=== PATIENT | male | born 1945 | race Caucasian/White ===

== ENCOUNTER 2016-11-29 10:23 | Day surgery (SDC) | payer MEDICARE ==
--- NOTE | ~2016-11-29 | OP ---
Record Of Operation [facility] [address] [place]. [address] NAME: BÁRBARA VALDIVIA : 45 STATUS : [facility]#: [id number] AGE: 71 ADM/REG DATE : 11/29/16 MR#: [id number] REPORT SERV DATE: 11/29/16 DICTATED BY: CRISTOFER IGLESIAS DATE: 11/29/16 REPORT STATUS : Draft TRANSCRIBED BY: MODL DATE: 11/29/16 DATE OF PROCEDURE: 11/29/2016 ATTENDING PHYSICIAN: Cristofer Iglesias M.D. TITLE OF OPERATION: Cystourethroscopy, right ureteroscopy with laser lithotripsy, and basket stone extraction of stones, right retrograde pyelogram, 6 x 24 right ureteral stent placement with tether. PREOPERATIVE DIAGNOSES: Bilateral ureteral stones and right renal stone. POSTOPERATIVE DIAGNOSES: Bilateral ureteral stones and right renal stone. INDICATIONS: Mr. Valdivia is a 71-year-old male who presented to me with right flank pain. KUB demonstrated high-volume stones in his right kidney as well as approximately 2 cm of stone in his right UVJ and about 1.5 cm of the stone in his left mid ureter. Surprisingly, his creatinine and kidney function is completely normal. He is here for treatment of the right- sided stones. We will do a delayed shockwave lithotripsy on the left side per his request. ANESTHESIA: General. COMPLICATIONS: None. IMPLANTS: 6 x 24 right ureteral stent with tether. SPECIMEN: Stones for analysis. NARRATIVE: The patient was brought to the operating room, identified by his wristband. General anesthesia was induced. Ancef was given for preoperative antibiotics. He was placed in dorsal lithotomy position, prepped and draped in sterile fashion. A rigid ureteroscope was placed into his urethra into his bladder. The right ureteral orifice was identified, it was gaping. The rigid ureteroscope was driven into the distal ureter and then a large volume of stone was immediately encountered. Using a 365 micron laser fiber, the stones were fragmented into numerous small pieces and removed with a basket grasper. The ureter was not traumatized. All stones were removed from the ureter. A retrograde pyelogram was shot, which showed a tortuous ureter with proximal dilation. Given these findings, I elected to leave the stent and Sensor wire was placed into the renal pelvis under fluoroscopic guidance. A 6 x 24 ureteral stent was placed in standard fashion. The proximal coil was in the renal pelvis and the distal coil was in the bladder. A tether was left. The bladder was drained. The patient was awoken from anesthesia and transferred to the recovery room in stable condition. He will remove his stent on Sunday or on Sunday in the clinic if he prefers. We will schedule him electively for shockwave lithotripsy on the left side. Record Of Operation [address] [place]. [address] NAME: BÁRBARA VALDIVIA : 45 STATUS : [facility] PAT#: [id number] AGE: 71 ADM/REG DATE : 11/29/16 MR#: [id number] REPORT SERV DATE: 11/29/16 DICTATED BY: CRISTOFER IGLESIAS DATE: 11/29/16 REPORT STATUS : Draft TRANSCRIBED BY: FALLON DATE: 11/29/16 BASIA/FALLON Cristofer Iglesias MD / [id number] CC: MD Lenin Olivera M.D.
[~2016-11-29 10:23] MED LIST: ADVIL PO; NORV5 PO; PRAVACHOL40 MG PO; T PO; VASERETIC10 PO; Z300 PO
[2016-11-29 10:53] LABS: HEMATOCRIT 45.3 % (40.0-51.0); HEMOGLOBIN 16.1 g/dL (13.6-17.8)
[2016-11-29 11:05] LABS: CALCIUM, SERUM 9.4 MG/DL (8.5-10.4); CHLORIDE, SERUM 105 MMOL/L (96-112); CO2 (CARBON DIOXIDE) 24 MMOL/L (24-34); CREATININE 1.04 MG/DL (0.70-1.30); GFR AFRICAN AMERICAN 83 ML/MIN (>=60); GFR NON AFRICAN AMERICAN 72 ML/MIN (>=60); POTASSIUM, SERUM 4.1 MMOL/L (3.5-5.3); SODIUM, SERUM 140 MMOL/L (135-148)
[2016-11-29 11:06] LABS: BUN (BLOOD UREA NITROGEN) 22 MG/DL (6-23); GLUCOSE, SERUM 147 MG/DL (60-99)
[2016-11-29 11:08] LABS: ASCORBIC ACID (UR NOT ORDER) NEG (NEG); BILIRUBIN, URINE NEGATIVE (NEG); KETONE, URINE NEGATIVE (NEG); LEUKOCYTE ESTERASE(NOT OR LARGE (NEG); WBC (NOT ORDERED) (RFLEX) 75 (0-5)
[2016-12-04 23:37] LABS: STONE COMPOSITION TWO DNR (())
== END 2016-11-29 15:55 | disposition home or self-care (01) ==
LOC: SDC 10:23
PROVIDERS: Urology
PROC: 0TF68ZZ Fragmentation in Right Ureter, Via Natural or Artificial Opening Endoscopic (ICD-10-PCS; 2016-11-29)
PROC: 0T768DZ Dilation of Right Ureter with Intraluminal Device, Via Natural or Artificial Opening Endoscopic (ICD-10-PCS; principal; 2016-11-29 11:45)
DX: N20.2 Calculus of kidney with calculus of ureter (principal); I10 Essential (primary) hypertension; E78.00 Pure hypercholesterolemia, unspecified; K21.9 Gastro-esophageal reflux disease without esophagitis; M10.9 Gout, unspecified; Z88.5 Allergy status to narcotic agent; Z79.899 Other long term (current) drug therapy
CPT/HCPCS: 80048; 81001; 82365; 85014; 85018; 87086; 93005; C1758; C2617; J0690; J2370; J2710; J3010; Q9967